=== PATIENT | female | born 1980 | race Caucasian/White ===

== ENCOUNTER 2018-12-22 23:02 | Emergency (ER) | payer OTHER ==
[~2018-12-22] VITALS: Ht 162.6 cm; Wt 61.2 kg
[~2018-12-22 23:02] MED LIST: ATIVAN; BACTRIM DS TAB1 EACH PO; BENTYL10 MG PO; CARAFATE 1 GM TA1 G1 PO; CELEXA 20 MG TA20 M1 PO; CELEXA 20 MG TA20 MG PO; CELEXA40 MG PO; CEPHALEXIN 500500 M1 PO; CIPROFLOXACIN500 M1 PO; CLONAZEPAM; CLONAZEPAM PO; DESYREL50 MG PO; DOCUSATE SODIU100 MG PO; DOXYCYCLINE 10100 MG PO; GLYCOLAX POWDER17 G1 PO; IBUPROFEN 800800 M1 PO; INDOMETHACIN 2525 MG PO; LITHIUM CARBON300 M3 PO; LORTAB 5 MG/5001 TA1 PO; NICOTINE TRANSD14 M1 TRANSDERM; NOHOMEMEDICATIONS; NORCO 5-325 TA1 EACH PO; OXYCODONE HCL 55 MG PO; PENTOXIFYLLINE400 MG PO; PHENERGAN 25 MG25 M1 PO; PREDNISONE 10 M10 MG PO; PREDNISONE 20 M20 M1 PO; PRENATAL VITAM1 EAC6 PO; PROTONIX40 M2 PO; PROZAC; TRILEPTAL 300300 MG PO; ULTRAM 50MG TAB50 MG PO; ZOLOFT 50 MG TA50 M1 PO
[2018-12-23] MEDS ORDERED: MOBIC15 MG PO (00:45)
[2018-12-23 01:10] VITALS: BP 126/70
== END 2018-12-23 01:10 | disposition home or self-care (01) ==
LOC: ER 23:02
DX: S90.32XA Contusion of left foot, initial encounter (principal); F17.210 Nicotine dependence, cigarettes, uncomplicated; F31.9 Bipolar disorder, unspecified; I10 Essential (primary) hypertension; Z90.710 Acquired absence of both cervix and uterus; Z88.8 Allergy status to other drugs, medicaments and biological substances; W17.89XA Other fall from one level to another, initial encounter; Y93.89 Activity, other specified; Y92.89 Other specified places as the place of occurrence of the external cause; Y99.8 Other external cause status

== ENCOUNTER 2019-11-16 02:08 | Emergency (ER) | payer OTHER ==
[~2019-11-16] VITALS: Ht 162.6 cm; Wt 59.0 kg
[~2019-11-16 02:08] MED LIST changes: +GENTAK5 ML INTRAOCULR; +MOBIC15 MG PO
[2019-11-16 03:14] LABS: ABSOLUTE NEUTROPHILS 4.8 thou/uL (1.4-8.2); BASOPHILS 0.9 % (0.0-2.0); EOSINOPHILS 3.2 % (0.0-3.0); HEMATOCRIT 37.5 % (37.0-47.0); HEMOGLOBIN 12.9 gm/dL (12.0-15.0); LYMPHOCYTES 25.6 % (24.0-44.0); MCH 35.6 pg (26.0-34.0); MCHC 34.5 g/dL (28.0-37.0); MCV 103.4 fL (80.0-100.0); MONOCYTES 10.2 % (1.0-8.0); PLATELET COUNT 131 thou/uL (150-400); POLYS 60.1 % (36.0-66.0); RBC 3.63 mil/uL (4.20-5.00); RDW 13.8 % (10.5-14.5); WBC 7.9 thou/uL (4.0-11.0)
[2019-11-16 03:25] LABS: CALCIUM 8.4 mg/dL (8.5-10.1); CREATININE 0.7 mg/dL (0.6-1.0); POTASSIUM 3.6 mmol/L (3.5-5.1)
[2019-11-16] MEDS ORDERED: KEFLEX500 M1 PO (04:51)
[2019-11-16 05:10] VITALS: BP 134/75
== END 2019-11-16 05:00 | disposition home or self-care (01) ==
LOC: ER 02:08
PROVIDERS: Emergency Medicine
DX: L03.213 Periorbital cellulitis (principal); R51 Headache; F31.9 Bipolar disorder, unspecified; I10 Essential (primary) hypertension; F17.210 Nicotine dependence, cigarettes, uncomplicated; Z90.711 Acquired absence of uterus with remaining cervical stump; Z79.899 Other long term (current) drug therapy; Z88.8 Allergy status to other drugs, medicaments and biological substances